=== PATIENT | male | born 2000 | race Caucasian/White ===

== ENCOUNTER → 2021-05-16 11:57 | Outpatient (REF) | payer BC, SELFPAY | LOC: ANHLAB 11:57 | PROVIDERS: PCP Pediatrics; Visit Provider Nurse Practitioner | DX: D49.2 Neoplasm of unspecified behavior of bone, soft tissue, and skin (principal) | CPT/HCPCS: 88305 ==

== ENCOUNTER 2021-12-12 09:17 | Emergency (ER) | payer BC, SELFPAY ==
[2021-12-12] VITALS (17 sets, daily range): BP systolic 101–142; BP diastolic 42–76; PULSE 67–115; RESP 14–21; TEMP 36.1; O2SAT 96–99
[2021-12-12] MEDS: LORazepam INJ (*CRX) 2 MG/ML VIAL IM (10:20)
[2021-12-12] MEDS: levETIRAcetam 1000MG/NACL100ML 1,000 MG/100 ML BAG 400 MG IVPB (10:49)
[2021-12-12 10:57] LABS: Basophils Absolute Auto 0.1 K/mm3 (0.0-0.1); Basophils Percent Auto 1.3 % (0.2-1.2); Eosinophils Absolute Auto 0.2 K/mm3 (0-0.3); Eosinophils Percent Auto 1.9 % (0-4.4); Hematocrit 42.4 % (42.0-52.0); Immature Granulocyte Absolute 0.04 K/mm3 (0.00-0.031); Immature Granulocyte Percent A 0.5 % (0-0.5); Lymphocytes Absolute Auto 1.62 K/mm3 (0.9-3.2); Lymphocytes Percent Auto 20.4 % (18.3-44.2); Mean Corpuscular HGB Conc 35.4 g/dl (32-36); Mean Corpuscular Hemoglobin 35.6 pg (26-34); Mean Corpuscular Volume 100.7 fl (80-100); Mean Platelet Volume 9.2 fl (7.4-10.4); Monocytes Absolute Auto 0.9 K/mm3 (0.1-0.6); Monocytes Percent Auto 10.9 % (2.6-8.5); Neutrophils Absolute Auto 5.2 K/mm3 (1.3-6.7); Platelet Count Result 244 k/mm3 (150-375); Red Blood Count 4.21 M/mm3 (4.6-6.20); Red Cell Distribution Width 12.6 % (11.5-14.5)
[2021-12-12 11:06] LABS: Alanine Aminotransferase 58 U/L (6-50); Albumin Level 3.9 g/dL (3.5-5.1); Alkaline Phosphatase 105 U/L (38-126); Anion Gap 9 mmol/L (8-16); Aspartate Amino Transferase 34 U/L (17-59); Bilirubin,Total 0.4 mg/dL (0.2-1.3); Blood Urea Nitrogen 14 mg/dL (9-20); Calcium 8.5 mg/dL (8.4-10.2); Carbon Dioxide 26 mmol/L (22-30); Chloride 106 mmol/L (98-107); Estimated Glomerular Filt Rate > 60; Glucose 101 mg/dL (65-110); Potassium 3.3 mmol/L (3.4-5.0); Sodium 141 mmol/L (137-145)
--- NOTE | 2021-12-12 11:13 | ED.SEIZURE ---
HPI - Seizure General Chief Complaint: Seizure Stated Complaint: SEIZURE Time Seen by Provider: 12/12/21 10:09 Source: family Limitations: physical limitation and clinical condition History of Present Illness HPI Narrative: 21 years old white male, Down syndrome, history of seizure on Keppra 12.5 mL twice daily, brought to the emergency room by ambulance with his parents because of another seizure this morning grand mal, lasted for 5 minutes, associated with tongue bite, patient is compliant with his medication, last seizure before this 1 was December 2020, was seen by his neurologist/Dr. Williamson at [facility] 3 days ago for regular checkup. The family denies that the patient have any fever, chills, nausea, vomiting, diarrhea, constipation. Patient had itching and skin rash for the last 4 weeks, was seen by his family physician and a human resources specialist, diagnosis of folliculitis, started on antibiotic, 2 courses so far, unknown name and topical steroid and Zyrtec. No improvement Related Data Home Medications Medication Instructions Recorded Confirmed levetiracetam 100 mg/mL oral 1,250 mg PO Q12H 05/16/21 solution (Keppra) levothyroxine 50 mcg tablet 150 mcg PO DAILY 05/16/21 (Synthroid) Allergies Allergy/AdvReac Type Severity Reaction Status Date / Time amoxicillin Allergy Unknown Rash Verified 12/12/21 10:51 cefdinir Allergy Unknown Rash Verified 12/12/21 10:51 Review of Systems Review of Systems: ROS unobtainable: Yes unobtainable due to medical condition and unobtainable due to mental status PMFSH Social History Social History Smoking status: Never smoker Alcohol intake: never Substance use: never Exam Narrative: General appearance: Well-developed, well-nourished, Down syndrome features, restless, itching all over Skin: Itching rash, possible folliculitis Head: Normocephalic, nontraumatic Eyes: Clear conjunctiva ENT: Oropharynx normal, ears normal, nose normal, tongue bite, bleeding controlled Neck: Supple, nontender Chest and respiratory: Airway patent, no respiratory distress, no accessory muscle use Heart: Regular rate/rhythm Abdomen: Soft, nontender, no organomegaly, quiet bowel sounds Neurologic: Alert Course Consultations Consultation #1: CYNTHIA, nurse practitioner of [facility] Dickson requested to discharge patient on Keppra 15 mL twice a day instead of 12.5 mL twice a day Date: 12/12/21 Time: 12:33 Vital Signs Vital signs: Vital Signs Pulse Rate 114 H 12/12/21 09:31 Respiratory Rate 16 12/12/21 09:31 Temperature 36.1 C L 12/12/21 09:32 Pulse Rate 92 12/12/21 11:30 Respiratory Rate 15 12/12/21 11:30 Blood Pressure 118/64 12/12/21 11:30 Pulse Oximetry 96 12/12/21 11:30 Oxygen Delivery Room Air 12/12/21 09:39 MDM - Seizure Lab Data Result diagrams: 12/12/21 10:52 12/12/21 10:52 Labs: Lab Results 12/12/21 12/12/21 Range/Units 10:52 10:52 WBC 8.0 (4.5-10.0) K/mm3 RBC 4.21 L (4.6-6.20) M/mm3 Hgb 15.0 (14.0-18.0) g/dL Hct 42.4 (42.0-52.0) % MCV 100.7 H (80-100) fl MCH 35.6 H (26-34) pg MCHC 35.4 (32-36) g/dl RDW 12.6 (11.5-14.5) % Plt Count 244 (150-375) k/mm3 MPV 9.2 (7.4-10.4) fl Immature Gran % (Auto) 0.5 (0-0.5) % Neut % (Auto) 65.0 (45.5-73.1) % Lymph % (Auto) 20.4 (18.3-44.2) % [place] % (Auto) 10.9 H (2.6-8.5) % Eos % (Auto) 1.9 (0-4.4) % Baso % (Auto) 1.3 H (0.2-1.2) % Lymph # (Auto) 1.62 (0.9-3.2) K/mm3 [place] # (Auto) 0.9 H (0.1-0.6) K/mm3 Eos # (Auto) 0.2 (0-0.3) K/mm3 Baso # (Auto) 0.1
[2021-12-12] MEDS: EPINEPHrine HCL INJ 1 MG/ML AMPUL 0.3 MG IM (11:59)
[2021-12-12] MEDS: diphenhydrAMINE HCl INJ 50 MG/ML VIAL IV PUSH (11:59)
== END 2021-12-12 13:05 | disposition home or self-care (01) ==
PROVIDERS: Emergency Provider Emergency Medicine; PCP Pediatrics
DX: G40.909 Epilepsy, unspecified, not intractable, without status epilepticus (principal); Q90.9 Down syndrome, unspecified
CPT/HCPCS: 36415; 80053; 85025; 96365; 96372; 96375; 99284; A4565; J0171; J1200; J1953; J2060

== ENCOUNTER 2022-08-04 15:04 | Outpatient (CLI) | payer BC, SELFPAY ==
[2022-08-04 19:33] LABS: T4 Thyroxine 7.58 ug/dL (5.53-11.0)
[2022-08-04 19:47] LABS: Thyroid Stimulating Hormone 0.494 uIU/mL (0.465-4.680)
== END 2022-08-04 15:05 | disposition home or self-care (01) ==
PROVIDERS: PCP Pediatrics; Visit Provider Pediatrics Pediatric Endocrinology
DX: E03.9 Hypothyroidism, unspecified (principal)
CPT/HCPCS: 36415; 84436; 84443

== ENCOUNTER 2024-07-10 18:02 | Emergency (ER) | payer BC, SELFPAY ==
--- OUTSIDE RECORDS SUMMARY | 2024-07-10 18:04 | XMS_ITS | Encounter Summary ---
Author Organization [facility] Address [address] [place] [address] Care Team Providers Care Sales Store Checker Name Role Phone Stefanie Chen MD Primary Care Provider Reason for Visit * Reason Onset Date Comments Refill Request 06/18/2010 appt wednesday 06/21, out of meds today.Levothyroxine 75mcg, 1 tab qd, [phone] Encounter Details Date Type Department Care Team (Late Contact Info) Description 06/18/2010 Telephone [facility] Diabetes [address] [address] Destiny Travis MD Refill Request (appt wednesday 06/21, out of meds today.Levothyroxine 75mcg, 1 tab qd, Please call [facility] [phone] ) Social History Tobacco Use Types Packs/Day Years Used Date Smoking Tobacco: Never Assessed Sex and Gender Information Value Date Recorded Sex Assigned at Not on file Legal 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 Gender Identity Not on file Sexual Orientation Not on file documented as of this encounter Plan of Treatment Upcoming Encounters Date Type Department Care Team (Late Contact Info) Description 10/11/2024 4:00 PM CDT Office Visit [facility] - Neurology [address] [facility] [place] [address] Jennifer Moraes APRN-NETWORK MANAGER [address] [place] [address] documented as of this encounter Visit Diagnoses Diagnosis Unspecified hypothyroidism- Primary documented in this encounter Additional Health Concerns Infection Onset Date Last Indicated Resolved Time COVID-19 Under Investigation 06/01/2021 06/01/2021 06/01/2021 2:44 PM CDT documented as of this encounter Care Teams Sales Store Checker Relationship Specialty Start Date End Date Stefanie Chen MD [address] [address] PCP - General 03/21/10 documented as of this encounter
--- OUTSIDE RECORDS SUMMARY | 2024-07-10 18:04 | XMS_ITS | Encounter Summary ---
Author Organization [facility] Address [address] [place] [address] Care Team Providers Care Mucking Machine Operator Name Role Phone Stefanie Chen MD Primary Care Provider Reason for Visit * Reason Onset Date Comments MEDICATION REFILL 05/27/2023 Encounter Details Date Type Department Care Team (Late st Contact Info) Description 05/27/2023 Refill [facility] - Neurology [address] [place] [phone] Haritha Martins PA-C [address] [place] [address] MEDICATION REFILL Social History Tobacco Use Types Packs/Day Years Used Date Smoking Tobacco: Never Smokeless Tobacco: Never Alcohol Use Standard Drinks/Week Comments No 0 (1 standard drink = 0.6 oz pur e alcohol) Sex and Gender Information Value Date Recorded Sex Assigned at Not on file 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 Answer Date of Assessment Author No 12/14/2017 6:44 PM Dana Baker RN * Is person blind or have serious difficulty seeing? Answer Date of Assessment Author No 12/14/2017 6:44 PM CDT Dana Michelle RN * Does person have serious difficulty walking/climbing stairs? Answer Date of Assessment Author No 12/14/2017 6:44 PM CDT Dana Michelle RN * Does person have difficulty dressing/bathing? Answer Date of Assessment Author Yes 12/14/2017 6:44 PM CDT Dana Michelle RN * Does person have difficulty doing errands alone? Answer Date of Assessment Author Yes 12/14/2017 6:44 PM CDT Dana Michelle RN documented as of this encounter Mental Status * Does person have difficulty concentrating/remembering/making decisions? Answer Entry Date Author Yes 12/14/2017 6:44 PM CHUCKYT Dana Michelle RN documented in this encounter Plan of Treatment Upcoming Encounters Date Type Department Care Team (Late st Contact Info) Description 10/11/2024 4:00 PM CDT Office Visit [facility] - Neurology [address] [place] [address] Jennifer Moraes, [facility] [address] [place] [address] documented as of this encounter Visit Diagnoses Diagnosis Nonintractable epilepsy without status epilepticus, unspecified epilepsy type (HCC) documented in this encounter Care Teams Mucking Machine Operator Relationship Specialty Start Date End Date Stefanie Chen MD [address] [address] PCP - General 03/21/10 documented as of this encounter
--- OUTSIDE RECORDS SUMMARY | 2024-07-10 18:04 | XMS_ITS | Clinical Summary ---
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 Social History Tobacco Use Types Packs/Day Years Used Date Smoking Tobacco: Never Smokeless Tobacco: Never Sex and Gender Information Value Date Recorded Sex Assigned at Not on file Legal Sex Male 12:05 PM CDT Gender Identity Not on file Sexual Orientation Not on file Plan of Treatment Health Maintenance Due Date Last Done Comments HPV VACCINES (1 - Male 3-dose series) 2013 DTAP/TDAP/TD VACCINES (1 - Tdap) 2017 HEPATITIS B VACCINES (1 of 3 - 19+ 3-dose series) 09/16 INFLUENZA VACCINE (#1) 2023 Insurance BS BLUE ACCESS/TRUE BLUE PPO Care Teams Loan Coordinator Relationship Specialty Start Date End Date Stefanie Chen MD [address] [place] [address] PCP - General Pediatrics 02/24/17
--- OUTSIDE RECORDS SUMMARY | 2024-07-10 18:04 | XMS_ITS | Encounter Summary ---
Author Organization [facility] Address [address] [place] [address] Care Team Providers Care Weed Inspector Name Role Phone Stefanie Chen MD Primary Care Provider [phone]- [phone] Reason for Visit * Reason Onset Date Comments Results 03/29/[address] Albarran ( on vacation), TSH elevated- per mom meds are taken as directed, has grown a little, please call mom with plan. Encounter Details Date Type Department Care Team (Late st Contact Info) Description 03/29/2012 Telephone [facility] - Endocrinology [address] [place] [address] [place] [address] [facility] [address] [place] [address] Results (pt of Dr. Albarran (on vacation), TSH elevated- per mom meds are taken as directed, has grown a little, please call mom with plan. 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 MILLER * Telephone Encounter - Tracey Don MD - 03/29/2012 1:01 PM FEED MILLER Please increase L-thyroxine to 0.112 mg daily, repeat T4 and TSH levels in one month, and confirm that Mayo has a return appointment. MILLER documented in this encounter Plan of Treatment Upcoming Encounters Date Type Department Care Team (Late st Contact Info) Description 10/11/2024 4:00 PM CDT Office Visit [facility] - Neurology [facility] [place] [address] Jennifer Moraes, ESPERANZA-INBOUND CUSTOMER SERVICE REPRESENTATIVE [address] [place] [address] Scheduled Orders Name Type Priority Associated Diagnoses Orde r Schedule T4 TOTAL Lab Routine Unspecified hypothyroidism Ordered: 03/29/2012 TSH Lab Routine Unspecified hypothyroidism Ordered: 03/29/2012 documented as of this encounter Visit Diagnoses Diagnosis Unspecified hypothyroidism- Primary documented in this encounter Additional Health Concerns Infection Onset Date Last Indicated Resolved Time COVID-19 Under Investigation 06/01/2021 06/01/2021 06/01/2021 2:44 PM CDT documented as of this encounter Care Teams Weed Inspector Relationship Specialty Start Date End Date Steafnie Chen MD [address] [place] [address] PCP - General 03/21/10 documented as of this encounter
--- OUTSIDE RECORDS SUMMARY | 2024-07-10 18:04 | XMS_ITS | Encounter Summary ---
Author Organization [facility] [employer] Address [address] [place] [address] Care Team Providers Care Fondant Puff Maker Name Role Phone Stefanie Chen MD Primary Care Provider Reason for Visit * Reason Onset Date Comments Scheduling 07/27/2023 Encounter Details Date Type Department Care Team (Late st Contact Info) Description 07/27/2023 Telephone [facility] [employer] [facility] - Endocrinology [facility] [place] [address] [place] Scheduling Social History Tobacco Use Types Packs/Day Years Used Date Smoking Tobacco: Never Smokeless Tobacco: Never Alcohol Use Standard Drinks/Week Comments No 0 (1 standard drink = 0.6 oz pur e alcohol) Sex and Gender Information Value Date Recorded Sex Assigned at Not on file 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 Answer Date of Assessment Author No 12/14/2017 6:44 PM Dana Baker RN * Is person blind or have serious difficulty seeing? Answer Date of Assessment Author No 12/14/2017 6:44 PM Dana Baker RN * Does person have serious difficulty walking/climbing stairs? Answer Date of Assessment Author No 12/14/2017 6:44 PM CDT Dana Michelle RN * Does person have difficulty dressing/bathing? Answer Date of Assessment Author Yes 12/14/2017 6:44 PM CHUCKYT Dana Michelle RN * Does person have difficulty doing errands alone? Answer Date of Assessment Author Yes 12/14/2017 6:44 PM CHUCKYT Dana Michelle RN documented as of this encounter Mental Status * Does person have difficulty concentrating/remembering/making decisions? Answer Entry Date Author Yes 12/14/2017 6:44 PM CDT Dana Michelle RN documented in this encounter Plan of Treatment Upcoming Encounters Date Type Department Care Team (Late st Contact Info) Description 10/11/2024 4:00 PM CDT Office Visit [facility] - Neurology [address] [place] [phone] Jennifer Moraes APRN-BENCH ASSEMBLER ELECTRICAL [address] [place] [address] documented as of this encounter Visit Diagnoses Not on filedocumented in this encounter Care Teams Fondant Puff Maker Relationship Specialty Start Date End Date Stefanie Chen MD [address] [address] PCP - General 03/21/10 documented as of this encounter
--- OUTSIDE RECORDS SUMMARY | 2024-07-10 18:04 | XMS_ITS | Encounter Summary ---
Author Organization [facility] Address [address] [facility] [place] [address] Care Team Providers Care Vault Maker Name Role Phone Stefanie Chen MD Primary Care Provider [phone]- [phone] Reason for Visit * Reason Onset Date Comments MEDICATION REFILL 05/08/2023 Encounter Details Date Type Department Care Team (Late st Contact Info) Description 05/08/2023 Refill [facility] Pediatrics - Diabetes [address] [address] Jose Albarran MD [address] [place] [phone] MEDICATION REFILL Social History Tobacco Use Types Packs/Day Years Used Date Smoking Tobacco: Never Smokeless Tobacco: Never Alcohol Use Standard Drinks/Week Comments No 0 (1 standard drink = 0.6 oz pur e alcohol) Sex and Gender Information Value Date Recorded Sex Assigned at Not on file Legal Sex Male 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 Answer Date of Assessment Author No 12/14/2017 6:44 PM CDDana Bui RN * Is person blind or have serious difficulty seeing? Answer Date of Assessment Author No 12/14/2017 6:44 PM CDT Dana Michelle RN * Does person have serious difficulty walking/climbing stairs? Answer Date of Assessment Author No 12/14/2017 6:44 PM CDT aDna Michelle RN * Does person have difficulty [...] Dana Michelle RN documented in this encounter Miscellaneous Notes * Telephone Encounter - Carrie Cheng RN - 05/08/2023 2:43 PM CDT Dad wants to update his Pharmacy to [facility]. [phone] [address] [place] [address] Mayo was seen last July 2022. Scheduled a follow up appointment in July 2023. documented in this encounter Plan of Treatment Upcoming Encounters Date Type Department Care Team (Late st Contact Info) Description 10/11/2024 4:00 PM CDT Office Visit [facility] - Neurology [address] [facility] [place] [phone] Jennifer Morase, ESPERANZA-LINE MECHANIC [address] [place] [phone] documented as of this encounter Visit Diagnoses Not on filedocumented in this encounter Care Teams Vault Maker Relationship Specialty Start Date End Date Stefanie Chen MD [address] [address] PCP - General 03/21/10 documented as of this encounter
--- OUTSIDE RECORDS SUMMARY | 2024-07-10 18:04 | XMS_ITS | Clinical Summary ---
Author Organization [facility] [employer] Address [address] [place] [address] Care Team Providers Care Coater Name Role Phone Stefanie Chen MD Primary Care Provider [phone] Source Comments [facility],non-university hospital Affiliates and Associated Physician Practices is amultiple site organization consisting of ambulatory clinics and hospital sitesin [place], [place], [place] and [place]. This disclosure is being madepursuant to the Care Everywhere program and may not contain all information available regarding this patient. Last updated 17.[facility] [employer] Allergies Active Allergy Reactions Criticality Noted Date Comments Amoxicillin Rash Medium 12/13/2017 Cefdinir 08/09/2010 Penicillins 08/09/2010 Medications * Be aware that medications may not be up to date on this document. Alwaysverify current medications with the patient. Cetirizine HCl (ZYRTEC PO) Active triamcinolone acetonide (Kenalog) 0.1 % cream 2 Active levETIRAcetam (Keppra) 100 MG/ML oral solutionIndication s:Nonintractable epilepsy without status epilepticus, unspecified epilepsy type (HCC) TAKE 20 ML BY MOUTH 2 TIMES DAILY 3600 mL 3 4 Active levothyroxine (Synthroid) 150 MCG tabletIndications: Other specified hypothyroidism ONE TABLET DAILY FOR SIX DAYS A WEEK 78 tablet 4 Active lamoTRIgine (LaMICtal) 100 MG tablet Take 1 (one) tablet by mouth 2 times daily 180 tablet 3 5 Active lamoTRIgine (LaMICtal) 100 MG tablet Take 1 (one) tablet by mouth 2 times daily 180 tablet 3 4 06/23/19 25 Discontinu ed(Reorder ) Active Problems Problem Noted Date Diagnosed Date Nonintractable epilepsy without status epileptic us 01/13/2018 Aspiration pneumonia of right lower lobe 018 Down's syndrome 11/30/2017 Abnormal ECG 11/30/2017 Overview (11/30/2017): Prominent R wave in V1 with endocardial cushion defect. Small VSD by history Ventricular septal defect (V SD), endocardial cushion defect (DOMAIN ARCHITECT) type 11/30/2017 Overview (11/30/2017): Reported spontaneous closure. 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 L-thyroxine (0.15 mg tablet) one tablet six days per week 2. Orders Placed This Encounter TSH Please obtain serum TSH and total T4 at local laboratory and fax results to Dr. Jose Albarran at [phone]. Order Specific Question: Release to patient Answer: Immediate T4 TOTAL Please obtain serum TSH and total T4 at local laboratory and fax results to Dr. Jose Albarran at [phone]. Order Specific Question: Release to patient Answer: Immediate HEMOGLOBIN A1C - POCT (IP) FAY Standing Status: Future Standing Expiration Date: 07/30/2023 Order Specific Question: Release to patient Answer: Immediate 3. Follow up by telephone (family telephone: [phone]) with laboratory results 4. Discussed transitioning care to adult loom mechanic 5. Return appointment in one year (if have not already established care with adult loom mechanic) Assessment & Plan (01/28/2021 8:28 AM INTERMEDIATE TEACHER): Acquired hypothyroidism, undertreated. Advised: increase L-thyroxine to 0.15 mg daily, repeat serum TSH in 8 week. Return visit in one year. Reviewed medication taking, drug/food interactions (calcium, soy, fiber) which interfere with medication absorption. 1. Orders Placed This Encounter TSH Order Specific Question: Release to patient Answer: Immediate levothyroxine (SYNTHROID) 150 MCG tablet Sig: Take 1 (one) tablet by mouth once daily Dispense: 90 tablet Refill: 1 2. Follow up by telephone (family telephone: [phone]) with test results 3. Return visit in one year. Assessment & Plan (04/26/2019 6:18 PM CDT): Down syndrome; acquired hypothyroidism; slightly undertreated. 1. L-thyroxine 0.15 mg daily (Thursday thru Thursday) 2. Repeat serum TSH in 6-8 weeks [including total IgA and tissue transglutaminase antibody (IgA)] - not previously screened for celiac disease. 3. Follow up by telephone (family telephone: [phone]) with test results 4. Return visit in one year. Assessment & Plan (04/27/2017 4:30 PM CDT): Well managed. 1. L-thyroxine (0.125 mg tablet) 1 tablet by mouth daily, except 1.5 tablets on Thursday 2. Orders Placed This Encounter BASIC METABOLIC PANEL (CALCIUM TOTAL) TSH 3. Obtain serum thyroid autoantibodies at next visit 4. Return appointment in one year Assessment & Plan (11/06/2015 9:40 AM CDT): Reasonably well treated; counseled medication adherence. 1. L-thyroxine (0.125 mg tablets) one tablet daily except 1.5 tablets one day weekly. 2. Obtain serum TSH in six months. 3. Return appointment in one year. Assessment & Plan (06/27/2014 7:54 AM CDT): Slightly over treated. 1. L-thyroxine (0.125 mg tab) 1 tab daily, except 1.5 tab on Thursday. 2. Obtain serum TSH in 8 weeks. 3. I will contact Mayo's mother by telephone (number: [phone]) with these test results after I have received them and any additional recommendations. 4. Obtain serum TSH in six months. 5. Return appointment in one year. Assessment & Plan (12/07/2013 11:18 AM CDT): Slightly undertreated. 1. L-thyroxine 0.125 mg (one tab) daily, except 1.5 tablets on Thursday - . 2. Obtain serum TSH in 8 weeks. 3. Dietary/exercise counseling provided. 4. Weight maintenance diet. 5. See website: choosemyplate.gov for patient information handouts on healthy eating habits, meal planning, label reading, age appropriate foods, and portion size control. 6. Return appointment in six months. Assessment & Plan (06/07/2013 1:49 PM CDT): Slightly under-treated. 1. L-thyroxine (0.125 mg tablets) 1 tabs daily. 2. Obtain serum TSH at [facility] in 8 weeks and fax results to Dr. Jose Albarran at [phone] (prescription given). 3. I will contact Mayo Macias's mother by telephone (number: [phone]) with the test results after I have received them and make the necessary medication dose adjustments. 4. I reviewed my provisional impressions and recommendations with Mayo Macias and his parents and they were in agreement. 5. See website: thyroid.org for patient information handouts - hypothyroidism 6. Return appointment in 6 months Assessment & Plan (12/06/2012 4:07 PM CDT): Well treated. 1. L-thyroxine 0.112 mg daily. 2. Obtain serum basic metabolic panel, TSH and total T4 one week before next office appointment in six months. 3. See website: thyroid.org for patient information handouts - hypothyroidism 4. Return appointment in six months, sooner if problems develop. Resolved Problems Problem Noted Date Diagnosed Date Resolved Date Seizure 08/12/2017 01/13/2018 Assessment & Plan (08/12/2017 2:53 PM CDT): Assessment: 16 year old male with Down syndrome and hypothyroidism for which he is on synthroid. He had one event on 07/17/2017 which certainly sounds like a GTC seizure based upon description. No focal deficits and it lasted less than 5 minutes. He has not had any further seizures since. No family history of seizures. Initial labs were unremarkable but head imaging not obtained. EEG obtained prior to today's visit was normal. Plan: - Given that he has had one unprovoked GTC seizure, will continue to observe for any further seizures prior to considering starting anti-seizure medication. - Will schedule MRI Brain under sedation. - Follow up as needed if any further seizures. Will call for MRI results and schedule follow up if any concerns. Encounters Date Type Department Care Team Description 06/22/2024 Refill [facility] - Neurology [address] [place] [address], [place] [phone] Jennifer Moraes APRN-[facility] MEDICATION REFILL from Last 3 Months Immunizations Immunization Administration Dates Next Due Covid opendorse primary monoval ent 12+ yr 0.3mL Purple cap 01/06/2021,05/04/2020,04/13/2020 DTAP, HISTORIC VACCINE 10/01/2004,1999,04/08/1999,02/11,1998 HEP A PED/ADULT VACCINE 11/11/2011,09/19/2010 HEP B VACCINE 01/04/2000,07/06/1999,04/08/1999 HIB VACCINE 01/04/2000, 0,02/11/1999,12/03 INFLUENZA VACCINE, CELL CULT URE, QUADR. (FLUCELVAX QUADRIVALENT; 6MO+) (CCIIV4) 12/04/2021 MENINGOCOCCAL ACWY (MCV4P) VAC IM 12/05/2014,05/2010 MMR VACCINE 10/01/2004,10/12/1999 POLIO,HISTORIC VACCINE 10/01/2004,1999,02/11/1999,12/03 Pneumococcal Pcv13 Conj 04/11/2000,01/04/2000 TDAP, HISTORIC VACCINE 10/24/2008 VARICELLA 10/28/2006,04/11/2000 Family History Medical History Relation Name Comments Cancer - Prostate Father Diabetes Neg Hx Thyroid Disease Neg Hx Relation Name Status Comments Father Alive Mother Alive Social History Tobacco Use Types Packs/Day Years Used Date Smoking Tobacco: Never Smokeless Tobacco: Never Tobacco Cessation:Counseling Given: Not Answered Alcohol Use Standard Drinks/Week Comments No 0 (1 standard drink = 0.6 oz pur e alcohol) Sex and Gender Information Value Date Recorded Sex Assigned at Not on file 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 Gender Identity Not on file Sexual Orientation Not on file Last Filed Vital Signs Vital Sign Reading Time Taken Comments Blood Pressure 111/75 07/28/2023 3:46 PM CDT Pulse 74 07/28/2023 3:46 PM CDT Temperature 37.3 C (99.1 F) 07/28/2023 3:46 PM CDT Respiratory Rate 20 06/01/2021 2:11 PM CDT Oxygen Saturation 99% 07/28/2023 3:46 PM CDT Inhaled Oxygen Concentration - - Weight 79.4 kg (175 lb) 07/28/2023 3:46 PM CDT Height 147.7 cm (4' 10.15) 08/04/2022 2:44 PM C DT Body Mass Index 36.39 08/04/2022 2:44 PM CDT Plan of Treatment Upcoming Encounters Date Type Department Care Team (Late st Contact Info) Description 10/11/2024 4:00 PM CDT Office Visit [facility] - Neurology [address] [facility] [place] [phone] Jennifer Moraes, ESPERANZA-MANAGER DESKTOP [address] [place] [address] Health Maintenance Due Date Last Done Comments HIV SCREENING 2013 HPV VACCINE (1 - Male 3-dose series) 2013 HEPATITIS C SCREENING 09/25/2016 DTAP/TDAP/TD VACCINES (7 - Td or Tdap) 10/24/2018 10/24/2008, 10/01/2004, 01/04/2000, Additional history exists COVID-19 VACCINE ( - season) 2023 01/06/2021, 05/04/2020, 04/13/2020 DEPRESSION SCREENING 02/17/2024 INFLUENZA VACCINE (Season Ended) 2024 12/04/2021 ZOSTER VACCINE (1 of 2) 2048 HEPATITIS B VACCINE Completed 01/04/2000, 07/06/1999, 04/08/1999 HIB VACCINE Completed 01/04/2000, 03/20, 02/11/1999, Additional history exists PNEUMOCOCCAL VACCINE Completed 04/11/2000, 01/04/20 00 MENINGOCOCCAL GROUPS A/C/Y/W VACCINE Completed 12/05/2014, 09/19/2010 MENINGOCOCCAL (Group B) VACCINE SHARED DECISION-MAKING Aged Out No longer eligible based on patient's age to complete this topic Insurance [facility] Advance Directives * Full Code (Latest Code Status on File) Date Activated Date Inactivated Comments 12/13/2017 3:27 PM 12/14/2017 8:49 PM Care Teams Coater Relationship Specialty Start Date End Date Stefanie Chen MD [address] [facility] [address] [place] [address] PCP - General 03/21/10
--- OUTSIDE RECORDS SUMMARY | 2024-07-10 18:04 | XMS_ITS | Encounter Summary ---
Author Organization [facility] Address [address] [facility] [place] [address] Care Team Providers Care Food Sampler Name Role Phone Stefanie Chen MD Primary Care Provider [phone]- [phone] Reason for Visit * Reason Onset Date Comments Refill Request 01/20/2017 Please refill Sy nthroid to pharmacy on file Request Lab Order 01/20/2017 Mayo has appoi ntment scheduled for 03/02/17, please put orders in for [facility] and mail to home. Encounter Details Date Type Department Care Team (Late st Contact Info) Description 01/20/2017 Telephone [facility] - Endocrinology [address] [place] [address] Jose Albarran MD [address] [place] [address] Refill Request (Please refill Synthroid to pharmacy on file); Request Lab Order (Mayo has appointment scheduled for 03/02/17, please put orders in for [facility] and mail to home. 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 Gender Identity Not on file Sexual Orientation Not on file documented as of this encounter Plan of Treatment Upcoming Encounters Date Type Department Care Team (Late st Contact Info) Description 10/11/2024 4:00 PM CDT Office Visit [facility] - Neurology [address] [facility] [place] [address] Jennifer Moraes APRN-SUPPLEMENTAL MANAGER [address] [place] [phone] documented as of this encounter Visit Diagnoses Not on filedocumented in this encounter Additional Health Concerns Infection Onset Date Last Indicated Resolved Time COVID-19 Under Investigation 06/01/2021 06/01/2021 06/01/2021 2:44 PM CDT documented as of this encounter Care Teams Food Sampler Relationship Specialty Start Date End Date Stefanie Chen MD [address] [address] PCP - General 03/21/10 documented as of this encounter
--- OUTSIDE RECORDS SUMMARY | 2024-07-10 18:04 | XMS_ITS | Encounter Summary ---
Author Organization [facility] Address [address] [facility] [place] [address] Care Team Providers Care Medical Aides Teacher Name Role Phone Stefanie Chen MD Primary Care Provider Reason for Visit * Reason Onset Date Comments Update 04/22/2019 Mother called to inform you that Mayo does NOT take 125mcg on Sat or Sun. Dr. Albarran revised increase - Mayo should take 150mcg tablet (that dad picked up) 6 days a week till gone, then switch back to the 125mcg qd. Encounter Details Date Type Department Care Team (Late st Contact Info) Description 04/22/2019 Telephone [facility] - Endocrinology [address] [place] [facility] [place] [address] Navya Hill Update (Mother called to inform you that Mayo does NOT take 125mcg on Sat or Sun. Dr. Albarran revised increase - Mayo should take 150mcg tablet (that dad picked up) 6 days a week till gone, then switch back to the 125mcg qd. 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 Answer Date of Assessment Author No 12/14/2017 6:44 PM CDT Dana Michelle RN * Is person blind or have [...] Description 10/11/2024 4:00 PM CDT Office Visit [facility] - Neurology [facility] [place] [address] Jennifer Moraes APRN-ELEMENTARY PRINCIPAL [address] [place] [address] documented as of this encounter Visit Diagnoses Not on filedocumented in this encounter Additional Health Concerns Infection Onset Date Last Indicated Resolved Time COVID-19 Under Investigation 06/01/2021 06/01/2021 06/01/2021 2:44 PM CDT documented as of this encounter Care Teams Medical Aides Teacher Relationship Specialty Start Date End Date Stefanie Chen MD [address] [address] PCP - General 03/21/10 documented as of this encounter
--- OUTSIDE RECORDS SUMMARY | 2024-07-10 18:04 | XMS_ITS | Encounter Summary ---
Author Organization [facility] Address [address] [facility] [place] [place] [address] Care Team Providers Care Veterinary Virologist Name Role Phone Stefanie Chen MD Primary Care Provider Reason for Visit * Reason Onset Date Comments Refill Request 07/12/2010 Levothyroxine 75 mcg, [facility] [phone] Encounter Details Date Type Department Care Team (Late st Contact Info) Description 07/12/2010 Telephone [facility] - Endocrinology [address] [place] [address] Destiny Travis MD Refill Request (Levothyroxine 75mcg, [facility] [phone]) Social History Tobacco Use Types Packs/Day Years Used Date Smoking Tobacco: Never Assessed Sex and Gender Information Value Date Recorded Sex Assigned at Not on file 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 Gender Identity Not on file Sexual Orientation Not on file documented as of this encounter Plan of Treatment Upcoming Encounters Date Type Department Care Team (Late Contact Info) Description 10/11/2024 4:00 PM CDT Office Visit [facility] - Neurology [address] [place] [phone] Jennifer Moraes, ESPERANZA-CLINICAL BUSINESS ANALYST [address] [place] [address] documented as of this encounter Visit Diagnoses Not on filedocumented in this encounter Additional Health Concerns Infection Onset Date Last Indicated Resolved Time COVID-19 Under Investigation 06/01/2021 06/01/2021 06/01/2021 2:44 PM CDT documented as of this encounter Care Teams Veterinary Virologist Relationship Specialty Start Date End Date Stefanie Chen MD [address] [facility] [address] [place] [address] PCP - General 03/21/10 documented as of this encounter
--- OUTSIDE RECORDS SUMMARY | 2024-07-10 18:04 | XMS_ITS | Encounter Summary ---
Author Organization [facility] Address [address] [place] [address] Care Team Providers Care Service Parts Driver Name Role Phone Stefanie Chen MD Primary Care Provider Reason for Visit * Reason Onset Date Comments Refill Request 10/17/2009 levothyroxine , call [email or web address] [phone] Encounter Details Date Type Department Care Team (Late st Contact Info) Description 10/17/2009 Refill [facility] Pediatric[facility] - Endocrinology [address] [place] [address] Destiny Travis MD Refill Request (levothyroxine , call [email or web address] [phone]) Social History Tobacco Use Types Packs/Day Years Used Date Smoking Tobacco: Never Assessed Sex and Gender Information Value Date Recorded Sex Assigned at Not on file 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 documented in this encounter Plan of Treatment Upcoming Encounters Date Type Department Care Team (Late st Contact Info) Description 10/11/2024 4:00 PM CDT Office Visit [facility] - Neurology [address] [facility] [place] [address] Jennifer Moraes APRN-PEAR PICKER [address] [place] [address] documented as of this encounter Visit Diagnoses Diagnosis Unspecified hypothyroidism documented in this encounter Additional Health Concerns Infection Onset Date Last Indicated Resolved Time COVID-19 Under Investigation 06/01/2021 06/01/2021 06/01/2021 2:44 PM CDT documented as of this encounter Care Teams Service Parts Driver Relationship Specialty [place] [address] [place] [address] PCP - General 03/21/10 documented as of this encounter
[2024-07-10 18:12] VITALS: BP 117/60; PULSE 92; RESP 18; TEMP 36.8; O2SAT 97
--- NOTE | 2024-07-10 18:28 | ED.GENADULT ---
HPI - General Adult General Chief complaint: Upper Respiratory Infection Stated complaint: cold symptoms/drainage History of Present Illness HPI narrative: Mayo Macias is a 23-year-old male with history of Down syndrome, hypothyroidism, seizures who presents today with his mom. Mom states that he started to have congestion over week ago that she thought maybe was allergies but then it has progressed and then she got hit and felt like she does had a cold but his symptoms she feels like getting worse and he is coughing more and at times coughing to the point of making him vomit. She also states that he is having still a lot of nasal congestion and drainage. Related Data Home Medications ?Medication ?Instructions ?Recorded ?Confirmed ?Last Taken ?Type levetiracetam 100 mg/mL oral 1,250 mg PO Q12H 05/16/21 10/14/23 12/12/21 History solution (Keppra) lamotrigine 100 mg tablet 100 mg PO BID 03/12/23 10/14/23 Unknown History Allergies Allergy/AdvReac Type Severity Reaction Status Date / Time amoxicillin Allergy Unknown Rash Verified 07/10/24 18:14 cefdinir Allergy Unknown Rash Verified 07/10/24 18:14 Review of Systems Review of Systems: All systems reviewed & are unremarkable except as noted in HPI and below PMFSH Past Medical History Medical History Down syndrome Hypothyroid Family History Family History Mother Breast cancer Depression Grandparent Breast cancer Depression Father Depression Social History Social History Smoking status: Never smoker Alcohol intake: never Substance use: never Lack of Transportation: No Lack of Food: Never True Current Housing: I Have Housing Concerned About Future Housing: No Difficulty Paying Gas/Electric Bills: No Difficulty Paying for Meds: No Currently Unemployed: No Education: High School Diploma/GED Difficulty w/ Childcare or Family Care: No Exam Narrative: GENERAL: Well-appearing, well-nourished, and in no acute distress. HEAD: Normocephalic, atraumatic. EYES: PERRLA and EOMI. ENT: Nares clear, no rhinorrhea or epistaxis. Mucous membranes moist. Oropharynx with tonsillar hypertrophy +3 no exudate or other lesions. Left TM pearly bertrand nonbulging, R TM obscured by yellow cerumen NECK: Supple. No adenopathy or masses. No carotid bruits or JVD CHEST: Clear to auscultation. No respiratory distress. No wheezes rales or rhonchi HEART: Regular rate and rhythm. No murmur heard. Normal peripheral pulses. ABDOMEN: Soft, nontender, nondistended, normal active bowel sounds. EXTREMITIES: Normal range of motion. No edema. SKIN: Warm, dry, no rash. NEURO: No focal deficits. PSYCH: Normal mood Course Course Level of Care: Express Care Visit Vital Signs Vital signs: Vital Signs Temperature 36.8 C 07/10/24 18:12 Pulse Rate 92 07/10/24 18:12 Respiratory Rate 18 07/10/24 18:12 Blood Pressure 117/60 07/10/24 18:12 Pulse Oximetry 97 07/10/24 18:12 Oxygen Delivery Room Air 07/10/24 18:12 Temperature 36.8 C 07/10/24 18:12 Pulse Rate 92 07/10/24 18:12 Respiratory Rate 18 07/10/24 18:12 Blood Pressure 117/60 07/10/24 18:12 Pulse Oximetry 97 07/10/24 18:12 Oxygen Delivery Room Air 07/10/24 18:12 Medical Decision Making [facility] Narrative Medical decision making narrative: This 23 year old patient presents with symptoms most suggestive of upper respiratory tract infection. Lungs are clear bilaterally without any respiratory distress or accessory muscle use. Mom states that when he has had these symptoms before it was strep and would like him tested for strep Strep: Negative - culture pending With his symptoms starting over a week ago and mom concerned that his symptoms are getting worse, will start treatment for bronchitis with azithromycin Patient discharged home in stable condition with expectant management. Return precautions were provided. Procedures: Pulse oximetry interpretation - not hypoxic. Review of medical records. DISPOSITION: Discharged home in stable condition. IMPRESSION: Acute Bronchitis Medical Records Medical records reviewed: Yes I reviewed the external patient's medical records. Vital Signs Vital Signs: Vital Signs Temperature 36.8 C 07/10/24 18:12 Pulse Rate 92 07/10/24 18:12 Respiratory Rate 18 07/10/24 18:12 Blood Pressure 117/60 07/10/24 18:12 Pulse Oximetry 97 07/10/24 18:12 Oxygen Delivery Room Air 07/10/24 18:12 Temperature 36.8 C 07/10/24 18:12 Pulse Rate 92 07/10/24 18:12 Respiratory Rate 18 07/10/24 18:12 Blood Pressure 117/60 07/10/24 18:12 Pulse Oximetry 97 07/10/24 18:12 Oxygen Delivery Room Air 07/10/24 18:12 Vitals reviewed by me Lab Data Lab results reviewed: Yes I reviewed the patient's lab results. Discharge Plan Discharge Clinical Impression: Bronchitis Patient Disposition: Home Condition: Stable Instructions: Antibiotic Form Additional Instructions: start the azithromycin for his bronchitis Make sure he is pushing fluids and staying hydrated You may also try honey for his cough Follow up with your primary care in about 1 week If he develops any worsening symptoms or unable to keep liquids down the proceed to the ER Patient Language: Italian Prescriptions: New azithromycin [Zithromax] 200 mg/5 mL suspension for reconstitution See Rx Instructions .ROUTE .COMPLEX Qty: 40 0RF Rx Instructions: take 12.5 mL (500 mg) by mouth today (day 1), then 6.25 mL (250 mg) daily for 4 days (days 2-5) discard the left over medication No Action levetiracetam [Keppra] 100 mg/mL solution 1,250 mg PO Q12H lamotrigine 100 mg tablet 100 mg PO BID levothyroxine 150 mcg tablet 150 mcg PO DAILY Qty: 90 4RF Rx Instructions: 150 mcg daily and skip thursday 6 pills per week total Follow-up/Referrals: Stefanie Chen MD [Primary Care Provider] - Time of Disposition: 18:42
[2024-07-10 18:41] LABS: EDSTREPNEGPOS1 Negative (Negative)
== END 2024-07-10 18:45 | disposition home or self-care (01) ==
PROVIDERS: Emergency Provider Nurse Practitioner Family; PCP Pediatrics
DX: J40 Bronchitis, not specified as acute or chronic (principal); Q90.9 Down syndrome, unspecified; G40.909 Epilepsy, unspecified, not intractable, without status epilepticus; E03.9 Hypothyroidism, unspecified
CPT/HCPCS: 87081; 87880; 99213; G0463